=== PATIENT | male | born 2000 | race Two or more races ===

== ENCOUNTER 2023-07-16 11:00 | Day surgery (SDC) | payer OTHER ==
[2023-07-08 14:33] VITALS: BMI 26.6
[2023-07-16 12:22] VITALS: PULSE 88; TEMP 98
[2023-07-16 12:23] VITALS: BP 100/58; RESP 18
== END 2023-07-16 12:00 | disposition home or self-care (01) ==
LOC: FASU-ENDO 11:00
PROVIDERS: ATTEND Internal Medicine Gastroenterology
PROC: 0DB48ZX Excision of Esophagogastric Junction, Via Natural or Artificial Opening Endoscopic, Diagnostic (ICD-10-PCS; 2023-07-16)
PROC: 0DB98ZX Excision of Duodenum, Via Natural or Artificial Opening Endoscopic, Diagnostic (ICD-10-PCS; principal; 2023-07-16 11:26)
DX: K29.50 Unspecified chronic gastritis without bleeding (principal); K21.00 Gastro-esophageal reflux disease with esophagitis, without bleeding; K44.9 Diaphragmatic hernia without obstruction or gangrene; R10.13 Epigastric pain
CPT/HCPCS: 88305-TC; 88342-TC